=== PATIENT | male | born 1940 | race Caucasian/White ===

== ENCOUNTER → 2016-09-03 | Outpatient (CLI) | payer MEDICARE | LOC: GMAL 10:24 | PROVIDERS: ATTEND Family Medicine | DX: D51.3 Other dietary vitamin B12 deficiency anemia (principal); M10.9 Gout, unspecified; E55.9 Vitamin D deficiency, unspecified; Z12.5 Encounter for screening for malignant neoplasm of prostate | CPT/HCPCS: 82306; 82607; 84550; G0103 ==

== ENCOUNTER → 2016-12-24 | Outpatient (CLI) | payer MEDICARE | END | disposition home or self-care (01) | LOC: GMAL 11:16 | PROVIDERS: ATTEND Family Medicine | DX: D51.3 Other dietary vitamin B12 deficiency anemia (principal); E55.9 Vitamin D deficiency, unspecified; E11.9 Type 2 diabetes mellitus without complications; E78.4 Other hyperlipidemia ==

== ENCOUNTER → 2017-01-28 | Outpatient (CLI) | payer MEDICARE ==
--- NOTE | 2017-01-28 14:02 | CT ---
EXAM DESCRIPTION: CT ABDOMEN AND PELVIS WITHOUT AND WITH CONTRAST CLINICAL HISTORY: DIVERTICULITIS COMPARISON: None Available. TECHNIQUE: CT of the abdomen and pelvis are performed prior to and during IV bolus administration of nonionic contrast. Oral contrast media was not utilized. This exam was performed according to our departmental dose-optimization program, which includes automated exposure control, adjustment of the mA and/or kV according to patient size and/or use of iterative reconstruction technique. FINDINGS: The lung bases are clear except for a tiny amount of pleural-based scarring or inflammation in the posterior left lung base without additional abnormalities noted. Noncontrast imaging demonstrates cystic changes involving each kidney without obstruction or stone disease and surgical absence of the gallbladder. Vascular calcification in the normal sized aorta is noted. Contrast enhanced examination demonstrates a normal-appearing liver without ductal dilatation with a tiny cyst in the anterior aspect radial segment left lobe of the liver the spleen is small and normal in size and the pancreas is normal with incidental note of an approximate 2 x 3 cm second portion duodenal diverticulum. The adrenal glands and kidneys are unremarkable except for benign cystic disease involving the mid left kidney as well as the anterior upper pole of the right kidney. No solid mass or obstruction is seen. No retroperitoneal adenopathy is noted. The stomach and small bowel are normal in appearance. A fluid-filled right colon without acute inflammation is evident. A small normal appendix is identified. Very mild left colonic diverticulosis is present but no convincing evidence of acute diverticulitis noted. In each inguinal region and just above and behind the inguinal ligament is a slightly irregular soft tissue density that is proximally 2 cm in size on each side with slightly higher density on the right than the left but clearly intrapelvic and above the inguinal ligament. These lie just anterior to the iliac vessels but appear to be separate from that do not have the typical appearance of lymph nodes. Correlation with any history of prior inguinal surgery and/or instrumentation for cardiac catheterization or other angiography is recommended. Possibility of lymphoceles or small hematomas would be a consideration. The appearance does not suggest undescended testes in this location. If there is no history to explain of the small abnormalities consider bilateral inguinal sonography within attention to the region of the internal inguinal ring and just deep to the inguinal ligament is recommended. The bladder is incompletely distended and mild prostatic hypertrophy is present without pelvic or abdominal ascites and the remainder the anterior abdominal wall is unremarkable. Advanced multilevel degenerative changes in the spine are present with grade 2 spondylolisthesis at L5-S1 with likely fusion of the disc space and hypertrophic fused old pars defects on the left and a persistent pars defect on the right. IMPRESSION: 1. Mild left colonic diverticulosis but without convincing evidence of diverticulitis. 2. Benign cystic disease of the kidneys and prior cholecystectomy. 3. Small soft tissue density irregular approximate 2 cm nodular densities just inside each internal inguinal ring, of uncertain significance. Possibility of seromas or hematomas or lymphoceles from prior inguinal surgery would certainly be a consideration. Correlation with any history of prior instrumentation or surgery in the inguinal regions is recommended if none is present, consider bilateral inguinal sonography for further characterization Electronically signed by: Grant Ayala MD 01/28/2017 2:01 PM CDT
== END | disposition home or self-care (01) ==
LOC: RAD 08:35
PROVIDERS: ATTEND Nurse Practitioner Family
DX: K57.92 Diverticulitis of intestine, part unspecified, without perforation or abscess without bleeding (principal)

== ENCOUNTER → 2017-06-16 | Outpatient (CLI) | payer MEDICARE ==
--- NOTE | 2017-06-18 09:31 | US ---
EXAM DESCRIPTION: Testicular CLINICAL HISTORY: 76 years Male, LLQ PAIN COMPARISON: December 16, 2012 FINDINGS: The right testicle measures 2.5 x 2.0 x 3.6 cm. There is a 4 mm cyst superficially in the right testicle suggestive of a tunica albuginea cyst. No solid right testicular mass is identified. The right epididymal head is not enlarged. There is a moderate size right-sided hydrocele. Blood flow is present to the right testicle. The left testicle measures 3.0 x 3.6 x 4.9 cm. Again seen superficially in the left testicle is a 1 cm cystic lesion with slight wall irregularity, unchanged from Dec, 2012. The left testicle appears slightly heterogeneous, but no new left testicular mass is identified. The left epididymal head is not enlarged. There is a large left-sided hydrocele. Low-level blood flow is noted in the left testicle. No left or right-sided varicocele. Additional images labeled left lower quadrant show an elongated 6.3 x 3.7 x 1.4 cm hypoechoic mass in the left lower quadrant with minimal internal blood flow. IMPRESSION: Small superficial cystic lesions in both testicles as detailed above, new on the right and stable in the left. 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 The left-sided lesion likely represents a benign intratesticular cyst. Moderate to large sized bilateral hydroceles, larger on the left side but also not significantly changed from Dec, 2012. Elongated solid appearing mass in the left lower quadrant measuring up to 6.3 cm diameter, nonspecific. Given provided history, CT with IV contrast is recommended for further evaluation. Electronically signed by: Tommy Colorado MD 06/18/2017 9:30 AM [facility]
== END | disposition home or self-care (01) ==
LOC: US 16:15
PROVIDERS: ATTEND Surgery
DX: N44.1 Cyst of tunica albuginea testis (principal)

== ENCOUNTER → 2017-06-26 | Outpatient (CLI) | payer MEDICARE ==
--- NOTE | 2017-06-26 10:25 | US ---
EXAM DESCRIPTION: Soft Tissue,Extremity: ULTRASOUND. CLINICAL HISTORY: LT LOWER QUAD PN. Pain is no longer present. Comparison ultrasound scrotum and testicles 06/16/2017. COMPARISON: None Available. TECHNIQUE: Transcutaneous scanning: Two-dimensional and Doppler modes. FINDINGS: Scanning of the abdominal wall in the left lower quadrant and the left inguinal canal. No hernia or soft tissue mass. No discrete solid mass cyst or fluid collection. IMPRESSION: No mass or fluid collection in the subcutaneous tissues of the lower left pelvic wall or left inguinal canal. Electronically signed by: Luan Galvan MD 06/26/2017 10:20 AM [facility]
== END | disposition home or self-care (01) ==
LOC: US 09:31
PROVIDERS: ATTEND Surgery
DX: R10.814 Left lower quadrant abdominal tenderness (principal)

== ENCOUNTER → 2017-07-07 | Outpatient (CLI) | payer MEDICARE | END | disposition home or self-care (01) | LOC: GMAL 12:50 | PROVIDERS: ATTEND Family Medicine | DX: D51.3 Other dietary vitamin B12 deficiency anemia (principal) ==

== ENCOUNTER → 2017-10-14 | Outpatient (CLI) | payer MEDICARE | LOC: GMAL 10:42 | PROVIDERS: ATTEND Family Medicine | DX: Z12.5 Encounter for screening for malignant neoplasm of prostate (principal) ==

== ENCOUNTER 2018-01-15 05:43 | Day surgery (SDC) | payer MEDICARE ==
--- NOTE | 2018-01-13 08:25 | SSS ---
CHIEF COMPLAINT: History of colonic polyps. HISTORY OF PRESENT ILLNESS: Mr. Marrero is a 77-year-old male who presented to my office for routine followup. It was noted that he was due for a repeat colonoscopy. He has had a colonoscopy by this physician in December of 2002 at which time a tubular adenoma was removed. Repeat colonoscopy in April of 2006 showed no polyps at that time. He is now due for repeat colonoscopy for routine screening. He also has a history of colonic polyps. He denies any symptoms referable to his bowels. Specifically, he has had no abdominal pain, changes in his bowel habits or blood in his stool. He has had no significant weight changes. Risks and benefits were discussed and he is agreeable with proceeding. PAST MEDICAL HISTORY: 1. Hypertension. He had an echocardiogram in March of 2011 that showed an ejection fraction of 55% and no significant valvular abnormalities. 2. Pulmonary embolism in 1984 that presented with hemoptysis and shortness of breath. 3. Diabetic gastroparesis diagnosed in July of 2011. 4. Gout diagnosed in August of 1998. 5. Chronic back pain from grade 2 to 3 L5 on S1 spondylolisthesis with bilateral severe neuroforaminal narrowing as well. 6. Type diabetes diagnosed in November of 2003. 7. Mild obstructive sleep apnea. He uses auto BiPAP with pressures of 18 and 6. 8. Epidermolysis bullosa simplex. PAST SURGICAL HISTORY: 1. Left detached retina in 1970. 2. 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 3. Septoplasty and endoscopic ethmoidectomies and right middle turbinate resection in the early by Dr. Kate. 4. Lumbar epidural steroid injection in February of 2007 and September of [address] Moore. 5. Right inguinal and umbilical hernia repair in September of [address] Webb. 6. Left knee arthroscopy by Dr. Wolf in 2012. 7. Laparoscopic cholecystectomy in April [address] Webb. 8. Left temporal artery biopsy by Dr. Dobson in August of 2017 that was negative. 9. Colonoscopies by this physician as above. 10. EGD by Dr. Ruby that showed chronic gastritis and possible short segment of Mcgill's esophagitis in June of 2011. 11. Nuclear stress test that "abnormal," but it was likely secondary to diaphragmatic attenuation in March of 2011. CURRENT MEDICATIONS: 1. Lantus. 2. Indomethacin. 3. Flomax. 4. Gemfibrozil. 5. Glimepiride. 6. Hydrochlorothiazide. 7. Lisinopril. 8. Norvasc. 9. Bystolic. 10. Allopurinol. 11. Pristiq. 12. Aspirin. 13. Prilosec. 14. Tramadol. ALLERGIES: 1. LEVAQUIN which causes [employer] side effects. 2. PENICILLIN which causes a rash. 3. BIAXIN which gives him diarrhea. 4. CITALOPRAM which causes nausea, anxiety and makes him sweaty. 5. CRESTOR which causes myalgia. 6. LIPITOR which causes myalgia. 7. LIVALO which causes myalgia. 8. ERYTHROMYCIN which causes abdominal pain. 9. SKELAXIN which makes him feel lightheaded and dizzy. FAMILY HISTORY: Father from a staph infection. Mother at age 84 from a shoulder fracture complicated by DVT. He had a brother who in a plane crash and a sister who from multiple sclerosis. He has two daughters. SOCIAL HISTORY: He is with two children. He is retired. He does own a local car wash. He has never smoked and does not consume alcohol. REVIEW OF SYSTEMS: Negative except as in the history of present illness. PHYSICAL EXAMINATION: VITAL SIGNS: Blood pressure 120/60. Pulse 60. Weight 262 pounds. Height 6'1 ". GENERAL: He is awake, alert and in no acute distress. HEENT: Unremarkable. NECK: Supple. LUNGS: Clear. CARDIOVASCULAR: Regular rate and rhythm without murmurs. RECTAL: Deferred until time of colonoscopy. EXTREMITIES: Without edema. NEUROLOGIC: Nonfocal. DIAGNOSIS: 1. Remote history of colonic polyps. PLAN: Colonoscopy on 01/15/18. #[id number] [facility]
[2018-01-15] MEDS ORDERED: LACTATED RINGERS 1,000 ML ONE (06:38)
[2018-01-15] MEDS ORDERED: LIDOCAINE 1% 10 ML VIAL INJ ONE (07:00)
[2018-01-15] MEDS ORDERED: PROPOFOL 200 MG/20 ML VIAL IV ONE (07:00)
[2018-01-15 07:32] VITALS: O2SAT 97
--- NOTE | 2018-01-15 09:07 | OP ---
DATE OF PROCEDURE: 01/15/18 PREOPERATIVE DIAGNOSIS: 1. Screening colonoscopy. 2. Remote history of colonic polyps. POSTOPERATIVE DIAGNOSIS: 1. 0.25 by 0.25 cm cecal polyp, biopsied to obliteration. 2. 0.25 by 0.25 cm transverse colon polyp, biopsied to obliteration. 3. 0.25 by 0.25 cm descending colon polyp, biopsied to obliteration. 4. 0.25 by 0.25 cm rectal polyp, biopsied to obliteration. 5. Small prostate nodule centrally. 6. Otherwise normal colonoscopy to the cecum with a somewhat poor prep, especially distally. PROCEDURE: 1. Colonoscopy. SURGEON: Mal Lazo MD. ESTIMATED BLOOD LOSS: Less than 1 mL. COMPLICATIONS: No immediate complications. ANESTHESIA: Propofol 480 mg administered intravenously via Alejandro Beckham CRNA. TECHNIQUE: After informed consent was obtained from the patient, the patient was taken to the Endoscopy Suite and placed in the left lateral decubitus position. Incremental doses of propofol were given until adequate sedation was obtained. Vital signs were monitored throughout the procedure. Supplemental oxygen was administered throughout the procedure. After adequate sedation was obtained, digital rectal examination was performed, which showed mildly to moderately enlarged prostate with a somewhat firm central nodule that measured no more than 0.5 cm in diameter. The colonoscope was then advanced into the patient's rectum and up through the sigmoid, descending, transverse and ascending colon to the level of the cecum. There was a little bit of looping when the ascending colon was reached, but with manual pressure, the cecum was reached, photographed and the terminal ileum was also entered and photographed. Just distal to the terminal ileum entrance into the cecum, a small polyp was noted and biopsied to obliteration. The other polyps noted in the postoperative diagnosis were all noted on withdrawal and also biopsied to obliteration. None of them were larger than 0.25 to 0.5 cm. Bowel prep was somewhat poor with a fair amount of liquid stool throughout the entire colon, but worse distally. Great effort was made to suction out as much of this as possible. I feel confident that polyps greater than 1 cm were not missed. In the rectum, the colonoscope was retroflexed on itself and grade 1 internal hemorrhoids were noted. No diverticula were appreciated. Air was suctioned out of the patient's rectum. The colonoscope was removed from the patient. The patient tolerated the procedure well. PLAN: Followup in my office in 7 to 10 days. Repeat colonoscopy was will be in 3 to 5 years pending the path report and his overall health. #[id number] [facility]
[2018-01-15 09:43] VITALS: BP 140/74; TEMP 97.1
== END 2018-01-15 09:30 | disposition home or self-care (01) ==
LOC: AMB 05:43
PROVIDERS: ATTEND Family Medicine
DX: Z12.11 Encounter for screening for malignant neoplasm of colon (principal); D12.0 Benign neoplasm of cecum; D12.4 Benign neoplasm of descending colon; D12.3 Benign neoplasm of transverse colon; K62.1 Rectal polyp; K64.0 First degree hemorrhoids; I10 Essential (primary) hypertension; E11.43 Type 2 diabetes mellitus with diabetic autonomic (poly)neuropathy; K31.84 Gastroparesis; K21.9 Gastro-esophageal reflux disease without esophagitis; G89.29 Other chronic pain; M54.9 Dorsalgia, unspecified; G47.33 Obstructive sleep apnea (adult) (pediatric); N40.2 Nodular prostate without lower urinary tract symptoms; Z86.010 Personal history of colon polyps; Z86.711 Personal history of pulmonary embolism; Z88.0 Allergy status to penicillin; Z88.1 Allergy status to other antibiotic agents; Z88.8 Allergy status to other drugs, medicaments and biological substances; Z79.82 Long term (current) use of aspirin; Z79.4 Long term (current) use of insulin; Z79.899 Other long term (current) drug therapy
CPT/HCPCS: 00812; 36416; 45380; 82948; 88305; J3490; J7120

== ENCOUNTER 2018-05-22 15:16 | Emergency (ER) | payer MEDICARE ==
[2018-05-22] MEDS ORDERED: SODIUM CHLORIDE 0.9% 1000ML 1,000 ML IVS ONE (15:43)
[2018-05-22] MEDS ORDERED: ONDANSETRON INJ 4 MG/2 ML VIAL IV ONE (15:44)
[2018-05-22 15:47] VITALS: TEMP 98.4
[2018-05-22] MEDS ORDERED: SODIUM CHLORIDE 0.9% 1000ML 500 ML IVS ONE (17:15)
--- NOTE | 2018-05-22 17:16 | ED.PDOC ---
History of Present Illness - General Chief Complaint: GI Problem Stated Complaint: N/V/D X3 Time Seen by Provider: 05/22/18 15:43 Information Source: patient, Vital Signs reviewed Exam Limitations: no limitations - History of Present Illness Initial Comments: Started with vomiting 3 days ago which then progressed to numerous episodes of diarrhea which appears to be decreasing [employer]. No sick contacts. Timing/Duration: days Improving Factors: nothing Worsening Factors: nothing Associated Symptoms: diarrhea, fatigue, weakness - no pain Review of Systems - Review of Systems Constitutional: States: see HPI EENTM: States: no symptoms reported Respiratory: States: no symptoms reported Cardiology: States: no symptoms reported Gastrointestinal/Abdominal: States: see HPI, diarrhea, nausea, vomiting. Denies : abdominal pain Genitourinary: States: other - oliguria Musculoskeletal: States: no symptoms reported Skin: States: no symptoms reported Past Medical History (General) - Patient Medical History Hx Congestive Heart Failure: No Hx Diabetes: Yes Hx MRSA: No Surgical History: cholecystectomy, other Family Medical History - Family History Mother Family History: No Known Physical Exam - Physical Exam General Appearance: Alert, Comfortable, No apparent distress Eyes, Ears, Nose, Throat Exam: other - dry oral mucosa Neck: full range of motion, supple Respiratory: no respiratory distress Cardiovascular/Chest: normal peripheral pulses, no edema Gastrointestinal/Abdominal: non tender, soft, no organomegaly Extremity: normal inspection, no pedal edema, normal capillary refill, other - poor turgor Neurologic: no motor/sensory deficits, alert, normal mood/affect, oriented x 3 Skin Exam: normal color, warm/dry Special Observations: No evidence of discomfort Progress - Progress Progress: 05/22/18 17:13 Feeling better. No vomiting or diarrhea but hasn't tried to drink much. No UOP yet. 05/22/18 18:02 Tolerating PO. + UOP. Wants to go home. - Results/Orders Results/Orders: Cr. 1.21 K 3.6 Departure - Departure Clinical Impression: Gastroenteritis, Dehydration Time of Disposition: 18:02 Disposition: Discharge to Home or Self Care Condition: Fair Departure Forms: ED Discharge - Pt. Copy, Patient Portal Self Enrollment Instructions: Dehydration, Adult (DC) Referrals: Mal Lazo III, MD [Primary Care Provider] - 05/24/18 Prescriptions: Ondansetron [Zofran Odt] 4 mg PO Q4H PRN #10 tab PRN Reason: Vomiting Home Medications: Ambulatory Orders Allopurinol [Zyloprim] 100 mg PO BID 01/12/18 Amlodipine Besylate [Amlodipine Besylate] 10 mg PO DAILY 01/12/18 Aspirin [Aspirin Adult Low Dose] 81 mg PO BEDTIME 01/12/18 Cholecalciferol [D3 2000] 1,000 unit PO DAILY 01/12/18 Desvenlafaxine Succinate [Pristiq] 50 mg PO DAILY 01/12/18 Gemfibrozil [Lopid] 600 mg PO BID 01/12/18 Glimepiride [Glimepiride] 1 mg PO BID 01/12/18 Hydrochlorothiazide [Hydrochlorothiazide] 25 mg PO DAILY 01/12/18 Insulin Glargine [Lantus Solostar] 24 unit SC DAILY 01/12/18 Lisinopril [Lisinopril] 20 mg PO BID 01/12/18 Metformin HCl 500 mg PO BID 01/12/18 Nebivolol HCl [Bystolic] 10 mg PO DAILY 01/12/18 Omeprazole [Omeprazole Dr] 20 mg PO DAILY 01/12/18 Tamsulosin HCl [Tamsulosin HCl] 0.4 mg PO BID 01/12/18 Ondansetron [Zofran Odt] 4 mg PO Q4H PRN #10 tab 05/22/18
[2018-05-22 18:40] VITALS: BP 155/74; O2SAT 97
== END 2018-05-22 17:50 | disposition home or self-care (01) ==
LOC: ER 15:16
DX: K52.9 Noninfective gastroenteritis and colitis, unspecified (principal); E86.0 Dehydration; E11.9 Type 2 diabetes mellitus without complications; Z90.49 Acquired absence of other specified parts of digestive tract
CPT/HCPCS: 36415; 80053; 85025; J2405; J7030

== ENCOUNTER → 2018-10-14 | Outpatient (CLI) | payer MEDICARE ==
--- NOTE | 2018-10-14 17:55 | MRI ---
EXAM DESCRIPTION: Cervical Spine: MRI. CLINICAL HISTORY: 78 years Male CERVICALGIA COMPARISON: MRI scan cervical spine without contrast 01/17/2016. TECHNIQUE: Multiplanar, high-field MRI, multiple sequences, non-contrast Cervical spine. FINDINGS: C2-3: Minimal desiccation in the disc with no bulging. Minimal arthrosis and hypertrophy of the right facet. Mild neural foraminal narrowing. Canal and left neuroforamen are patent. C3-C4: Right facet appears partially fused with increased T1 signal; fusion has increased since prior study showing inflammatory changes . Moderate narrowing of the right neural foramen. Left facet and neural foramen are unremarkable. Canal patent. C4-C5: 2 mm grade 1 anterolisthesis. Desiccation of the disc. Hypertrophy of the posterior ligaments. Tiny posterior disc bulge in the midline. Bilateral facet arthrosis and hypertrophy more right than left. Moderate narrowing of the right neural foramen and minimal narrowing of the left neural foramen. Mild canal narrowing. C5-C6: Minimal disc desiccation with anterior bulging and endplate ridging. Bilateral uncinate spurs and mild to moderate neural foraminal narrowing. No disc bulging. Minimal facet arthrosis bilaterally. Mild canal narrowing. C6-C7: Anterior disc bulge and endplate ridging. Mild disc space loss with disc desiccation. Trace retrolisthesis. Tiny posterior disc bulge. Bilateral uncinate spurs. Moderate to severe right neural foraminal narrowing and left neural foraminal stenosis. Hyperintense T2 and inversion recovery signal in the central cord extending inferior below the C7-T1 disc. C7-T1: Minimal disc desiccation with tiny posterior bulge in the midline. No cord compression. Bilateral mild facet arthrosis. Lateral mild neural foraminal narrowing. Minimally desiccated signal in the T1-T2 with no bulging. Disc space preserved. Canal and neural foramina are patent. Facet joints negative Spinal alignment kyphotic C4-C7. No cord compression. Atlantoaxial joint minimal arthrosis. Base of the cerebellar tonsils is at the level of the foramen magnum. Paravertebral soft tissues unremarkable.. Vertebral bodies are not compressed at any level. Normal marrow signal in the remaining vertebral bodies and the posterior elements. IMPRESSION: 1. Postinflammatory fusion of the right C3-C4 facet which has progressed since the prior study. Causing moderate narrowing of the right neural foramen. Advanced arthrosis of the right C2-C3 facet with adjacent soft tissue edema and periarticular fluid. Mild right neural foraminal narrowing. This has progressed since the prior study. 2. Grade 1 anterolisthesis C4-C5. Hypertrophic posterior ligaments. Moderate narrowing of the right neural foramen. Stable since the prior study. 3. Trace retrolisthesis at C6-C7. Moderate to severe right neural foraminal narrowing and left neural foraminal stenosis. This has progressed since the prior study. Correlate for bilateral C7 radiculopathy. 4. 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 Slight progression since the prior study. No cord compression visualized any level. Electronically signed by: Luan Galvan MD 10/14/2018 5:52 PM [facility]
== END ==
LOC: MRI 09:36
PROVIDERS: ATTEND Family Medicine
DX: M43.12 Spondylolisthesis, cervical region (principal); G95.0 Syringomyelia and syringobulbia; M50.91 Cervical disc disorder, unspecified, high cervical region; M50.822 Other cervical disc disorders at C5-C6 level

== ENCOUNTER → 2019-02-04 | Outpatient (CLI) | payer MEDICARE ==
--- NOTE | 2019-02-04 11:51 | US ---
EXAM DESCRIPTION: Carotid Duplex: ULTRASOUND. CLINICAL HISTORY: 78 years Male CAROTID ARTERY STENOSIS COMPARISON: MR cervical spine 10/14/2018. TECHNIQUE: Transcutaneous scanning utilizing miranda-scale and Doppler modes to evaluate the bilateral carotid systems and vertebral arteries. Percentage of diameter of stenosis or no stenosis recorded will be based upon NASCET criteria. FINDINGS: Peak systolic/end diastolic (CM-Sec) CCA Right 95/12 Left 121/16. ICA Right proximal 92/12, mid 100/22. Left proximal 97/18, Distal 78/19. Vertebral Right 36/12 Left 81/11. ECA (PS Only) Right 100 left 90. ICA/CCA peak systolic ratio: Right 1.1 Left 0.8 ICA/CCA end diastolic ratio: Right 1.9 Left 1.1 Vertebral arteries: antegrade flow. Comments: Bilateral atherosclerotic calcification in the common carotid bifurcations and in the proximal ICAs. Spectral broadening in the proximal right ICA. Diameter and area stenoses less than 30% in the bulb and the proximal right ICA. Spectral broadening in the proximal left ICA. Diameter in the area stenosis in the left carotid bulb and proximal left ICA is less than 45%. IMPRESSION: 1. Doppler evaluation of the bilateral carotid systems and vertebral arteries shows no hemodynamically significant stenoses.. Grayscale diameter stenosis in the proximal left ICA is less than 45%. 2. Moderate amount of plaque seen in the carotid arteries bilaterally. Bilateral vertebral arteries showed antegrade-cephalad flow. Electronically signed by: Luan Galvan MD 02/04/2019 11:43 AM CDT
== END ==
LOC: US 09:58
PROVIDERS: ATTEND Family Medicine
DX: I65.23 Occlusion and stenosis of bilateral carotid arteries (principal)

== ENCOUNTER → 2019-06-28 | Outpatient (CLI) | payer MEDICARE | END | disposition home or self-care (01) | LOC: GMAL 10:09 | PROVIDERS: ATTEND Family Medicine | DX: D51.3 Other dietary vitamin B12 deficiency anemia (principal); Z12.5 Encounter for screening for malignant neoplasm of prostate; R53.83 Other fatigue; E55.9 Vitamin D deficiency, unspecified | CPT/HCPCS: 82306; 82607; 84443; G0103 ==